=== PATIENT | male | born 2000 | race Caucasian/White ===

== ENCOUNTER 2022-05-13 06:31 | Emergency (ER) | payer OTHER ==
[2022-05-13 08:01] LABS: BASOPHILS % (AUTO) 0.1 %; HCT - HEMATOCRIT 48.1 % (42.0-52.0); HGB - HEMOGLOBIN 16.8 g/dL (14.0-18.0); LYMPHOCYTES # (AUTO) 0.4 10^3/uL (1.5-3.5); LYMPHOCYTES % (AUTO) 2.6 %; MEAN CORPUSCULAR HEMOGLOBIN 30.1 pg (27.0-31.0); MEAN CORPUSCULAR HGB CONC 34.9 g/dL (32.0-36.0); MEAN PLATELET VOLUME 10.4 fL (7.4-11.4); MONOCYTES # (AUTO) 0.3 10^3/uL (0.0-1.0); MONOCYTES % (AUTO) 2.1 %; NEUTROPHILS # (AUTO) 14.8 10^3/uL (1.5-6.6); NEUTROPHILS % (AUTO) 94.7 %; PLT - PLATELET COUNT 238 10^3/uL (130-450); RED BLOOD COUNT 5.59 10^6/uL (4.70-6.10); WHITE BLOOD COUNT 15.7 x10^3/uL (4.8-10.8)
[2022-05-13 08:14] LABS: ALBUMIN/GLOBULIN RATIO 1.7 (1.0-2.2); CALCIUM 9.8 mg/dL (8.5-10.3); CREATININE 1.1 mg/dL (0.6-1.2); POTASSIUM 4.3 mmol/L (3.5-5.0)
[2022-05-13 08:45] LABS: BILIRUBIN,URINE NEGATIVE (NEGATIVE); GLUCOSE, URINE (UA) NEGATIVE (NEGATIVE); KETONES,URINE (UA) NEGATIVE (NEGATIVE); LEUKOCYTE ESTERASE, URINE NEGATIVE (NEGATIVE); NITRITE,URINE NEGATIVE (NEGATIVE); OCCULT BLOOD,URINE NEGATIVE (NEGATIVE); PROTEIN,URINE NEGATIVE (NEGATIVE); UROBILINOGEN,URINE 0.2 (NORMAL) E.U./dL (NORMAL)
[2022-05-13 08:48] LABS: CLARITY,URINE CLEAR (CLEAR)
[2022-05-13] MEDS ORDERED: DROPERIDOL 5 MG/2 ML VIAL IVP STA (09:46)
[2022-05-13] MEDS ORDERED: SODIUM CHLORIDE 0.9% 1,000 ML IV STA (09:46)
[2022-05-13 10:48] VITALS: BP 131/78
--- NOTE | 2022-05-13 10:51 | ED Physician Documentation ---
PD HPI NVD - Stated complaint Stated Complaint: N/V/D, CANT EAT - Chief complaint Chief Complaint: Abd Pain - History obtained from History obtained from: Patient - Additonal information Additional information: The patient comes to the emergency department chief complaint of nausea and vomiting for the last couple of days. He has also had some diarrhea. He states that he has not been able to hold anything down overnight and has just vomited everything and feels weak and dehydrated. He states he was able to take a little bit of fluid in the lobby but is still feeling nauseated. No other complaints at this time. No abdominal pain. No respiratory symptoms. No fevers. Review of Systems Ten Systems: 10 systems reviewed and negative Constitutional: reports: Reviewed and negative Eyes: reports: Reviewed and negative Ears: reports: Reviewed and negative Nose: reports: Reviewed and negative Throat: reports: Reviewed and negative Cardiac: reports: Reviewed and negative Respiratory: reports: Reviewed and negative GI: reports: Nausea, Vomiting, Diarrhea : reports: Reviewed and negative Skin: reports: Reviewed and negative Musculoskeletal: reports: Reviewed and negative Neurologic: reports: Reviewed and negative Psychiatric: reports: Reviewed and negative Endocrine: reports: Reviewed and negative Immunocompromised: reports: Reviewed and negative PD PAST MEDICAL HISTORY - Past Medical History Past Medical History: No Cardiovascular: None Respiratory: None Neuro: None Endocrine/Autoimmune: None GI: None : None HEENT: None Psych: None Musculoskeletal: None Derm: None - Past Surgical History Past Surgical History: No - Present Medications Home Medications: Ambulatory Orders Medication Instructions Recorded Confirmed Ondansetron Odt [Zofran] 4 mg TL Q6H PRN #10 tablet 05/13/22 - Allergies Allergies/Adverse Reactions: Allergies Allergy/AdvReac Type Severity Reaction Status Date / Time No Known Drug Allergies Allergy Verified 05/13/22 06:51 - Social History Does the pt smoke?: No Smoking Status: Current some day smoker Does the pt drink ETOH?: No Does the pt have substance abuse?: No - Immunizations Immunizations are current?: Yes PD ED PE NORMAL - Vitals Vital signs reviewed: Yes - General General: Alert and oriented X 3, No acute distress, Well developed/nourished - HEENT HEENT: Atraumatic, PERRL, EOMI, Moist mucous membranes - Neck Neck: Supple, no meningeal sign - Cardiac Cardiac: RRR, No murmur, Strong equal pulses - Respiratory Respiratory: No respiratory distress, Clear bilaterally - Abdomen Abdomen: Soft, Non tender, Non distended - Derm Derm: Normal color, Warm and dry, No rash - Extremities Extremities: No deformity - Neuro Neuro: Alert and oriented X 3 - Psych Psych: Normal mood, Normal affect Results - Vitals Vitals: Vital Signs - 24 hr 05/13/22 05/13/22 06:48 09:00 Temperature 36.4 C L Heart Rate 114 H 100 Respiratory 18 18 Rate Blood Pressure 117/81 H 145/78 H O2 Saturation 96 100 Oxygen O2 Source Room air - Labs Labs: Laboratory Tests 05/13/22 05/13/22 05/13/22 07:56 07:56 08:40 WBC 15.7 H RBC 5.59 Hgb 16.8 Hct 48.1 MCV 86.0 MCH 30.1 MCHC 34.9 RDW 13.0 Plt Count 238 MPV 10.4 Neut # (Auto) 14.8 H Lymph # (Auto) 0.4 L [place] # (Auto) 0.3 Eos # (Auto) 0.0 Baso # (Auto) 0.0 Absolute Nucleated RBC 0.00 Nucleated RBC % 0.0 Sodium 140 Potassium 4.3 Chloride 98 L Carbon Dioxide 29 Anion Gap 13.0 BUN 18 Creatinine 1.1 Estimated GFR (MDRD) 86 L Glucose 130 H Calcium 9.8 Total Bilirubin 1.0 AST 26 ALT 23 Alkaline Phosphatase 49 Total Protein 8.0 Albumin 5.0 Globulin 3.0 Albumin/Globulin Ratio 1.7 Lipase 31 Urine Color YELLOW Urine Clarity CLEAR Urine pH 6.0 Ur Specific [place] 1.010 Urine Protein NEGATIVE Urine Glucose (UA) NEGATIVE Urine Ketones NEGATIVE Urine Occult Blood NEGATIVE Urine Nitrite NEGATIVE Urine Bilirubin NEGATIVE Urine Urobilinogen 0.2 (NORMAL) Ur Leukocyte Esterase NEGATIVE Ur Microscopic Review NOT INDICATED Urine Culture Comments NOT INDICATED PD MEDICAL DECISION MAKING - ED course Complexity details: reviewed results, re-evaluated patient, considered differential, d/w patient ED course: Patient is feeling much better after IV fluids and Droperidol. Departure - Departure Disposition: 01 Home, Self Care Clinical Impression: Gastroenteritis Condition: Stable Instructions: ED Gastroenteritis Viral Prescriptions: Ondansetron Odt [Zofran] 4 mg TL Q6H PRN #10 tablet PRN Reason: Nausea / Vomiting Comments: Your prescription has been electronically transmitted to [facility] pharmacy in [place]. Please take the medication as needed for nausea.Your symptoms should begin to improve in the next few days. Please do not try to eat as long as your stomach is very nauseated but just focus on drinking clear liquids, especially water. Once you are able to tolerate water without difficulty, you may slowly introduce small amounts of solid, simple starches, such as saltine crackers, Ramen noodles, or white rice. As you are able to tolerate these, you may advance your diet to more complex foods, as tolerated. Forms: Activity restrictions
== END 2022-05-13 11:07 | disposition home or self-care (01) ==
LOC: ED 06:31
DX: K52.9 Noninfective gastroenteritis and colitis, unspecified (principal); R53.1 Weakness; Z72.0 Tobacco use
CPT/HCPCS: 36415; 80053; 81001; 81003; 83690; 85025; 87086; 96374; 99282